=== PATIENT | female | born 1960 | race African-American/Black ===

== ENCOUNTER 2017-04-17 22:59 | Inpatient (IN) | payer MEDICARE, MEDICAID ==
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
[2017-04-18] MEDS ORDERED: LORazepam 1 MG TAB PO PRN (09:49)
[2017-04-18] MEDS ORDERED: MAGNESIUM HYDROXIDE 2,400 MG/10 ML CUP PO PRN (09:49)
[2017-04-18] MEDS ORDERED: LORazepam 2 MG/ML SYRINGE IM PRN (09:51)
[2017-04-18] MEDS: DIAZEPAM 5 MG TAB PO PRN (13:21)
[2017-04-18] MEDS: SERTRALINE 100 MG TAB PO SCH (13:21)
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
[2017-04-18] MEDS: HYDROCORTISONE 1% CREAM 30 GM TUBE TOPICAL PRN (15:55)
[2017-04-18] MEDS: MAG HYDROX/AL HYDROX/SIMETH 30 ML CUP PO PRN (17:07)
[2017-04-18] MEDS: FAMOTIDINE 20 MG TAB PO SCH (21:38)
--- NOTE | 2017-04-19 08:32 | CONS ---
DATE OF CONSULTATION: 04/18/2017 Patient is a 56-year-old female admitted for suicidal ideation, depression and patient was overdosed on alcohol. Patient used to be an alcoholic in the past, quit drinking alcohol, although started drinking again a couple days ago. Started having suicidal ideation, because of which patient was admitted to psychiatric service. Patient denied any fever, chills, nausea, vomiting, abdominal pain, although patient is a bit constipated and also having problems with hemorrhoids and hemorrhoidal pain in the rectal area. REVIEW OF SYSTEMS: CONSTITUTIONAL: No fever, no malaise, no fatigue. HEENT: No recent visual problems or hearing problems. Denied any sore throat. CARDIOVASCULAR: No chest pain, orthopnea, PND, no palpitations, no syncope. PULMONARY: No shortness of breath, no cough, no hemoptysis. GASTROINTESTINAL: No diarrhea, no nausea, no vomiting, no abdominal pain. Normoactive bowel sounds. NEUROLOGICAL: No headaches, no weakness, no numbness. HEMATOLOGICAL: Denies any bleeding or petechiae. GENITOURINARY: As described in HPI. MUSCULOSKELETAL/RHEUMATOLOGICAL: Denies any joint pain, swelling, or any muscle pain. ENDOCRINE: Denies any polyuria or polydipsia. The rest of the 14 point review of systems is negative. HOME MEDICATIONS: Lorazepam, omeprazole, sertraline, Acetone. PAST MEDICAL HISTORY: Apparently significant history for asthma. The patient has cervical dysplasia in the past. Because of which patient underwent patient hysterectomy. Anxiety, depression. Patient does smoke. Used to drink alcohol heavily in the past. History of polysubstance abuse in the past, has been clean for 42 years and started drinking again about a couple days ago. FAMILY HISTORY: Unavailable at this point of time. PHYSICAL EXAMINATION: Temperature 98.5, pulse 70, respiratory rate 15, blood pressure 150/92. Saturating at 97% on room air. GENERAL: The patient is alert and oriented x3, not in any acute distress. Well developed, well nourished. HEENT: Pupils are round and equally reacting to light. EOMI. No scleral icterus. No conjunctival pallor. Normocephalic, atraumatic. No pharyngeal erythema. No thyromegaly. CARDIOVASCULAR: S1 and S2 present. No murmurs, rubs, or gallops. PULMONARY: Chest is clear to auscultation, no wheezing or crackles. ABDOMEN: Soft, nontender, nondistended, normoactive bowel sounds. No palpable organomegaly. MUSCULOSKELETAL: No joint swelling or deformity. EXTREMITIES: No cyanosis, clubbing, or pedal edema. NEUROLOGICAL: Gross neurological examination did not reveal any focal deficits. SKIN: No rashes. LABORATORY DATA: Urine drug screen is negative. Patient's alcohol level was elevated. ASSESSMENT AND PLAN: 1. Polysubstance abuse in the past. Will obtain a hepatitis panel on her. 2. Hemorrhoids for which I recommend Anusol cream and avoid constipation with p.r.n. Senna or Colace. 3. Nicotine abuse. Counseling was provided. 4. Depression and suicidal ideation. Management as per primary service. 5. Patient has history of gastric cancer in the past. Since then the patient was continued on omeprazole, which I will switch to Pepcid as patient has some gastritis-like symptoms as her prolonged omeprazole melissa can cause osteoporosis.
[2017-04-19 09:30] VITALS: BMI 26.6
[2017-04-19] MEDS: HYDROCORTISONE 1% CREAM 30 GM TUBE TOPICAL PRN (10:06)
[2017-04-19] MEDS: SERTRALINE 100 MG TAB PO SCH (10:06)
[2017-04-19] MEDS: FAMOTIDINE 20 MG TAB PO SCH ×2 (10:06→20:31)
[2017-04-19] MEDS: DIAZEPAM 5 MG TAB PO PRN ×2 (10:07→20:32)
[2017-04-19 11:11] LABS: Basophils % (A) 1 %; CH 29.9; CHCM 33.2; Eosinophils # (A) 0.1 k/uL (0-0.7); Eosinophils % (A) 1 %; HCT 42.3 % (34.0-46.0); HDW 2.67; Luc # (Auto) 0.09; Luc % (Auto) 2; Lymphocytes # (A) 1.5 k/uL (1.0-4.8); Lymphocytes % (A) 36 %; MCHC 33.1 g/dL (31.0-37.0); MCV 90.7 fL (80.0-100.0); Mean Platelet Volume 6.9; Monocytes # (A) 0.3 k/uL (0-1.0); Monocytes % (A) 7 %; Neutrophils # (A) 2.2 k/uL (1.3-7.7); Neutrophils % (A) 53 %; RBC 4.66 m/uL (3.80-5.40); RDW 14.2 % (11.5-15.5); WBC 4.1 k/uL (3.8-10.6); WBC (Perox) 4.17
[2017-04-19 11:41] LABS: ALT 31 U/L (9-52); AST 40 U/L (14-36); Alkaline Phosphatase 79 U/L (38-126); Anion Gap 10 mmol/L; Blood Urea Nitrogen 17 mg/dL (7-17); Calcium 10.9 mg/dL (8.4-10.2); Carbon Dioxide 22 mmol/L (22-30); Chloride 108 mmol/L (98-107); Glucose 111 mg/dL (74-99); Non-African American GFR(MDRD) >60 (>60 ml/min/1.73 sqM); Sodium 140 mmol/L (137-145); Total Bilirubin 1.6 mg/dL (0.2-1.3); Total Protein 7.9 g/dL (6.3-8.2)
[2017-04-19] MEDS: ACETAMINOPHEN TAB 325 MG TAB PO PRN ×2 (13:23→20:33)
[2017-04-19 14:05] LABS: Hepatitis B Surface Ag Index 0.08
[2017-04-19 14:06] LABS: Hepatitis B Core IgM Index 0.02; Hepatitis C Virus IgG Ab Negative (Negative); Hepatitis C Virus IgG Index 0.02
[2017-04-19] MEDS: MAG HYDROX/AL HYDROX/SIMETH 30 ML CUP PO PRN (16:43)
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
[2017-04-19] MEDS: LIDOCAINE 5% PATCH TOPICAL SCH (17:06)
[2017-04-20] MEDS: LIDOCAINE 5% PATCH TOPICAL SCH (09:36)
[2017-04-20] MEDS: MAG HYDROX/AL HYDROX/SIMETH 30 ML CUP PO PRN (09:39)
[2017-04-20] MEDS: HYDROCORTISONE 1% CREAM 30 GM TUBE TOPICAL PRN ×2 (09:39→20:54)
[2017-04-20] MEDS: FAMOTIDINE 20 MG TAB PO SCH ×2 (09:39→20:53)
[2017-04-20] MEDS: DIAZEPAM 5 MG TAB PO PRN ×2 (09:39→20:54)
[2017-04-20] MEDS: SERTRALINE 100 MG TAB PO SCH (09:39)
--- NOTE | 2017-04-20 12:22 | P.PN ---
Progress Note - Text SUBJECTIVE: I reviewed the medical record and interviewed Ms. Cosby. She is a 56-year-old female who presented to unit with complaints of depression, suicidal ideation and uncontrolled alcohol use. She is concerned about her blood pressure. She added that she does not history of high blood pressure but the readings since she's been admitted to have been "high." She denied feeling depressed or having thoughts of or suicide. She denied experiencing alcohol withdrawal symptoms such as nausea, vomiting, trial tremor, increased anxiety, headache or tactile, auditory or visual disturbances. She described "hot and cold" flashes that she attributed to menopause. She reported some benefit from the lidocaine patch. OBJECTIVE: She was casually groomed, pleasant and appropriate. She made eye contact and attended to the interview. She had no distinguishing features or prominent physical disabilities. She had a distressed facial expression. She showed psychomotor retardation but no abnormal involuntary movements. Her gait was slow and shuffling. Her speech was spontaneous with normal rate, rhythm and volume. Her affect was depressed and not reactive. She denied suicidal ideation or wishes. She denied homicidal ideation. She denied feeling hopeless or helpless. She did not express phobias, ideas reference, paranoid ideation or delusional beliefs. Her thinking was concrete but her associations were organized, coherent and goal directed. She denied hallucinations and did not appear to responding to internal stimuli. She slept 6 hours last night. Her CIWA scores today and yesterday were 1. Her blood pressure this morning was 152/75 with a pulse of 100. ASSESSMENT: She appears less depressed than on admission. Her elevated blood pressure may be related to alcohol withdrawal. PLAN: Continue inpatient hospitalization. Continue suicide precautions with 15 minute checks. Continue Zoloft 100 mg daily and diazepam 5 mg by mouth 3 times a day when necessary for anxiety. Continue Lidoderm 5% 1 patch topically to lower back daily. Encourage continued participation in therapeutic groups and activities. Evaluate clinical status response to treatment on a daily basis.
[2017-04-20] MEDS: ACETAMINOPHEN TAB 325 MG TAB PO PRN (14:11)
[2017-04-21] MEDS: FAMOTIDINE 20 MG TAB PO SCH ×2 (09:18→21:33)
[2017-04-21] MEDS: LIDOCAINE 5% PATCH TOPICAL SCH (09:18)
[2017-04-21] MEDS: SERTRALINE 100 MG TAB PO SCH (09:18)
[2017-04-21] MEDS: HYDROCORTISONE 1% CREAM 30 GM TUBE TOPICAL PRN (09:19)
[2017-04-21] MEDS: DIAZEPAM 5 MG TAB PO PRN ×2 (09:20→22:59)
[2017-04-21] MEDS: ACETAMINOPHEN TAB 325 MG TAB PO PRN ×3 (09:20→22:59)
--- NOTE | 2017-04-21 15:03 | P.PN ---
Progress Note - Text SUBJECTIVE: I reviewed the medical record and interviewed Ms. Cosby. She is a 56-year-old female who presented to unit with complaints of depression, suicidal ideation and uncontrolled alcohol use. She complained of back pain. She denied thoughts of or suicide. She is "feeling better ... Almost back to normal." She reported mild to moderately for back pain with a lidocaine patch. OBJECTIVE: She was casually groomed, pleasant and appropriate. She only made intermittent eye contact but appeared to attend to the interview. She had no distinguishing features or prominent physical disabilities. She had a blunted but bright facial expression. She showed psychomotor retardation but no abnormal involuntary movements. Her gait was slow and shuffling. Her speech was spontaneous with normal rate, rhythm and volume. Her affect was depressed but reactive. She denied suicidal ideation or wishes. She denied homicidal ideation. She denied feeling hopeless or helpless. She did not express phobias, ideas reference, paranoid ideation or delusional beliefs. Her thinking was concrete but her associations were organized, coherent and goal directed. She denied hallucinations and did not appear to responding to internal stimuli. She slept 6 hours last night. Her blood pressure this morning was 96/52 with a pulse of 66. ASSESSMENT: She appears less depressed than on admission. Her blood pressure has normalized. PLAN: Continue inpatient hospitalization. Continue suicide precautions with 15 minute checks. Continue Zoloft 100 mg daily and diazepam 5 mg by mouth 3 times a day when necessary for anxiety. Continue Lidoderm 5% 1 patch topically to lower back daily. Consider discharge his week. Encourage continued participation in therapeutic groups and activities. Evaluate clinical status response to treatment on a daily basis.
[2017-04-22] MEDS: LIDOCAINE 5% PATCH TOPICAL SCH (09:09)
[2017-04-22] MEDS: SERTRALINE 100 MG TAB PO SCH (09:09)
[2017-04-22] MEDS: FAMOTIDINE 20 MG TAB PO SCH ×2 (09:09→21:23)
[2017-04-22] MEDS: ACETAMINOPHEN TAB 325 MG TAB PO PRN (09:09)
[2017-04-22] MEDS: DIAZEPAM 5 MG TAB PO PRN ×2 (09:10→21:25)
--- NOTE | 2017-04-22 12:46 | P.PN ---
Progress Note - Text SUBJECTIVE: I reviewed the medical record, interviewed Ms. Choe discussed her treatment and treatment plan during team meeting. She complained of back pain and feeling "tired". She alleged she feels tired because she had restarted Zoloft after not having taken the medication "for couple months". Overall she feels that she is "doing better". She denied having thoughts of or suicide. OBJECTIVE: She presented as a casually groomed -Turkmen female who was pleasant on approach. She was lying in her bed and was reluctant to get up because of the back pain. She made eye contact and attended to the interview. She had no distinguishing features or prominent physical abnormalities. She has a blunted but bright facial expression. She was alert and oriented to person, place and time. She showed psychomotor retardation but no abnormal involuntary movements. Her speech was spontaneous with normal rate, rhythm and volume. Her affect was depressed but stable and appropriate. She denied suicidal ideation or wishes. She denied homicidal ideation. She denied feeling hopeless, helpless or worthless. She did not express ideas reference, paranoid ideation or delusional thinking. Her thinking was abstract and associations were coherent and logical. She denied hallucinations and did not appear to be responding to internal stimuli. ASSESSMENT: She continues to complain of moderate to severe back pain partially relieved by her current pain regimen. She is less depressed than on admission and has no signs and symptoms of alcohol withdrawal. PLAN: Continued psychiatric hospitalization. Continue suicide precautions with 15 minute checks. Continue psychotropic medications: Zoloft 100 mg daily, Valium 5 mg by mouth 3 times a day when necessary for anxiety. Continue Lidoderm patch when necessary to her lower back. Plan for discharge on 2016. Encourage participation in therapeutic groups and activities. Evaluate clinical status response to treatment daily basis.
[2017-04-23 06:55] VITALS: BP 118/59; PULSE 64; RESP 16; TEMP 97.8
[2017-04-23] MEDS: SERTRALINE 100 MG TAB PO SCH (09:29)
[2017-04-23] MEDS: LIDOCAINE 5% PATCH TOPICAL SCH (09:29)
[2017-04-23] MEDS: FAMOTIDINE 20 MG TAB PO SCH (09:29)
[2017-04-23] MEDS: ACETAMINOPHEN TAB 325 MG TAB PO PRN (09:31)
[2017-04-23] MEDS: DIAZEPAM 5 MG TAB PO PRN (09:32)
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
== END 2017-04-23 17:10 | disposition home or self-care (01) | DRG 885 ==
LOC: EC 22:59 → 3MHU 04-18 08:32
PROVIDERS: ADMIT Psychiatry & Neurology Psychiatry; ATTEND Psychiatry & Neurology Psychiatry
DX: F33.2 Major depressive disorder, recurrent severe without psychotic features (principal); R45.851 Suicidal ideations; F10.239 Alcohol dependence with withdrawal, unspecified; Z63.4 Disappearance and death of family member; F41.9 Anxiety disorder, unspecified; K59.00 Constipation, unspecified; K64.9 Unspecified hemorrhoids; F42.9 Obsessive-compulsive disorder, unspecified; G89.29 Other chronic pain; M54.5 Low back pain; T51.0X1A Toxic effect of ethanol, accidental (unintentional), initial encounter; I25.2 Old myocardial infarction; J45.909 Unspecified asthma, uncomplicated; J44.9 Chronic obstructive pulmonary disease, unspecified; F17.200 Nicotine dependence, unspecified, uncomplicated; Z79.899 Other long term (current) drug therapy; Z81.8 Family history of other mental and behavioral disorders; Z85.028 Personal history of other malignant neoplasm of stomach; Z87.410 Personal history of cervical dysplasia; Z62.810 Personal history of physical and sexual abuse in childhood; Z91.410 Personal history of adult physical and sexual abuse
CPT/HCPCS: 80053; 80074; 80306; 82075; 84443; 85025